=== PATIENT | male | born 1965 | race Caucasian/White ===

== ENCOUNTER 2016-11-29 20:00 | Emergency (ER) | payer MEDICARE ==
[~2016-11-29] VITALS: Ht 180.3 cm; Wt 82.1 kg
[~2016-11-29 20:00] MED LIST: AMOXICILLIN500 M2 PO; ANAPROX DS550 MG PO; ANTIDEPRESSANT; ATIVAN1 MG; ATIVAN1 MG PO; AUGMENTIN 875875 MG PO; CELEXA20 MG; CERUMENEX OT; DEBROX 15 ML15 M1 OT; LORAZEPAM1 MG PO; Motrin,Rufen800 MG PO; NORCO 5-325 TA1 EACH PO; PERPHENAZINE4 M1 PO; SERTRALINE HYD100 MG PO; TRAMADOL HCL50 MG PO; TRAZADONE HYDR100 MG; TRIMOX500 MG PO; ZOLOFT100 MG PO
[2016-11-29 20:07] VITALS: BP 116/74
== END 2016-11-29 22:02 | disposition home or self-care (01) ==
LOC: ED 20:00
DX: H61.22 Impacted cerumen, left ear (principal); Z79.899 Other long term (current) drug therapy

== ENCOUNTER 2017-02-20 09:43 | Emergency (ER) | payer MEDICARE ==
[~2017-02-20] VITALS: Wt 86.2 kg
[2017-02-20 09:47] VITALS: BP 130/70
== END 2017-02-20 10:44 | disposition home or self-care (01) ==
LOC: ED 09:43
DX: H61.22 Impacted cerumen, left ear (principal); Z79.899 Other long term (current) drug therapy

== ENCOUNTER 2019-04-26 12:30 | Emergency (ER) | payer MEDICARE, MEDICAID ==
[~2019-04-26] VITALS: Ht 154.9 cm; Wt 94.3 kg
[2019-04-26 12:32] VITALS: BP 129/54
== END 2019-04-26 14:11 | disposition home or self-care (01) ==
LOC: ED 12:30
DX: S93.402A Sprain of unspecified ligament of left ankle, initial encounter (principal); Z79.899 Other long term (current) drug therapy; X50.1XXA Overexertion from prolonged static or awkward postures, initial encounter; Y93.89 Activity, other specified; Y92.89 Other specified places as the place of occurrence of the external cause; Y99.8 Other external cause status

== ENCOUNTER 2019-08-14 17:23 | Emergency (ER) | payer MEDICARE, MEDICAID ==
[~2019-08-14] VITALS: Ht 180.3 cm; Wt 94.3 kg
[2019-08-14 17:25] VITALS: BP 126/89
[2019-08-14] MEDS ORDERED: CILOXAN 5 ML5 ML OT (17:38)
== END 2019-08-14 17:51 | disposition home or self-care (01) ==
LOC: ED 17:23
DX: H61.22 Impacted cerumen, left ear (principal); Z79.899 Other long term (current) drug therapy

== ENCOUNTER 2020-08-01 14:01 | Emergency (ER) | payer MEDICARE, MEDICAID ==
[~2020-08-01] VITALS: Ht 180.3 cm; Wt 95.3 kg
[~2020-08-01 14:01] MED LIST changes: +CILOXAN 5 ML5 ML OT
[2020-08-01 15:53] VITALS: BP 110/78
[2020-08-01] MEDS ORDERED: ZITHROMAX250 MG PO (17:11)
== END 2020-08-01 17:42 | disposition home or self-care (01) ==
LOC: ED 14:01
DX: U07.1 COVID-19 (principal); J18.9 Pneumonia, unspecified organism; Z79.899 Other long term (current) drug therapy

== ENCOUNTER → 2020-12-14 | Outpatient (CLI) | payer MEDICARE, MEDICAID ==
[~2020-12-14] MED LIST changes: +ZITHROMAX250 MG PO
[2020-12-14 10:42] LABS: HEMATOCRIT 49.2 % (42.0-52.0); MEAN CELL VOLUME 86.9 fl (80.0-94.0); MEAN CORPUSCULAR HGB 29.7 pg (27.0-31.0); MEAN CORPUSCULAR HGB CONC 34.1 g/dl (33.0-37.0); MEAN PLATELET VOLUME 9.8 fl (9.6-12.3); RED BLOOD COUNT 5.66 10*6/uL (4.50-5.90); RED CELL DISTRI WIDTH 12.9 % (0-14.5); WHITE BLOOD COUNT 6.2 10*3/uL (4.8-10.8)
[2020-12-14 11:13] LABS: ALBUMIN 3.9 gm/dl (3.1-4.5); ALKALINE PHOSPHATASE 72 U/L (45-117); BUN 18 mg/dl (7-24); CHLORIDE 108 mmol/L (98-107); CHOLESTEROL 222 mg/dL (<200); CREATININE 1.22 mg/dL (0.70-1.30); HDL CHOLESTEROL 55 mg/dl (40-60); LDL CHOLESTEROL 137 mg/dL (9-159); POTASSIUM 4.1 mmol/L (3.5-5.1); SGOT/AST 16 IU/L (3-35); SGPT/ALT 32 U/L (12-78); SODIUM 140 mmol/L (136-145); TOTAL PROTEIN 7.2 gm/dL (6.4-8.2); TRIGLYCERIDES 148 mg/dl (<150); VLDL CHOLESTEROL 30 mg/dL (6-40)
== END | disposition home or self-care (01) ==
LOC: LAB 10:04
PROVIDERS: ATTEND Nurse Practitioner Family
DX: Z12.5 Encounter for screening for malignant neoplasm of prostate (principal); Z13.220 Encounter for screening for lipoid disorders; E78.00 Pure hypercholesterolemia, unspecified

== ENCOUNTER 2021-02-28 11:24 | Emergency (ER) | payer OTHER, MEDICAID ==
[~2021-02-28] VITALS: Ht 180.3 cm; Wt 97.1 kg
[2021-02-28 11:29] VITALS: BP 117/73
== END 2021-02-28 13:11 | disposition home or self-care (01) ==
LOC: ED 11:24
DX: H61.23 Impacted cerumen, bilateral (principal); Z79.2 Long term (current) use of antibiotics; Z79.899 Other long term (current) drug therapy

== ENCOUNTER 2021-12-07 20:16 | Emergency (ER) | payer OTHER, MEDICAID ==
[~2021-12-07] VITALS: Ht 180.3 cm; Wt 100.2 kg
[2021-12-07 21:02] VITALS: BP 125/76
== END 2021-12-07 22:01 | disposition home or self-care (01) ==
LOC: ED 20:16
DX: H61.22 Impacted cerumen, left ear (principal); Z79.899 Other long term (current) drug therapy

== ENCOUNTER 2022-03-11 15:58 | Emergency (ER) | payer OTHER, MEDICAID | END 2022-03-11 17:17 | disposition left against medical advice (07) | LOC: ED 15:58 | DX: Z53.21 Procedure and treatment not carried out due to patient leaving prior to being seen by health care provider (principal) ==

== ENCOUNTER 2022-08-28 10:10 | Emergency (ER) | payer OTHER, MEDICAID ==
[~2022-08-28] VITALS: Ht 180.3 cm; Wt 99.3 kg
[2022-08-28 10:15] VITALS: BP 112/74
== END 2022-08-28 10:25 | disposition left against medical advice (07) ==
LOC: ED 10:10
DX: Z53.21 Procedure and treatment not carried out due to patient leaving prior to being seen by health care provider (principal)

== ENCOUNTER 2022-11-20 09:59 | Emergency (ER) | payer OTHER, MEDICAID | END 2022-11-20 15:49 | disposition left against medical advice (07) | LOC: ED 09:59 | DX: R05.9 Cough, unspecified (principal); R09.81 Nasal congestion; Z53.21 Procedure and treatment not carried out due to patient leaving prior to being seen by health care provider ==

== ENCOUNTER 2023-02-15 10:12 | Emergency (ER) | payer OTHER, MEDICAID ==
[~2023-02-15] VITALS: Ht 180.3 cm; Wt 102.1 kg
[2023-02-15 10:18] VITALS: BP 122/82
== END 2023-02-15 13:34 | disposition home or self-care (01) ==
LOC: ED 10:12
DX: H61.23 Impacted cerumen, bilateral (principal); Z98.890 Other specified postprocedural states; F32.A Depression, unspecified; F41.9 Anxiety disorder, unspecified

== ENCOUNTER 2024-03-27 22:04 | Emergency (ER) | payer OTHER, MEDICAID ==
[~2024-03-27] VITALS: Ht 180.3 cm; Wt 95.7 kg
[2024-03-27 22:21] VITALS: BP 107/89
[2024-03-27] MEDS ORDERED: DOCUSATE SODIUM 100 MG/10 ML UDC OT ONE (22:50)
== END 2024-03-28 00:30 | disposition home or self-care (01) ==
LOC: ED 22:04
DX: H61.22 Impacted cerumen, left ear (principal); Z79.2 Long term (current) use of antibiotics; Z79.899 Other long term (current) drug therapy

== ENCOUNTER 2025-05-24 10:38 | Emergency (ER) | payer OTHER, MEDICAID ==
[~2025-05-24] VITALS: Wt 99.8 kg
[2025-05-24 10:49] VITALS: BP 125/80
[2025-05-24] MEDS ORDERED: DOCUSATE SODIUM 100 MG/10 ML UDC PO ONE (11:00)
[2025-05-24] MEDS ORDERED: DEBROX15 ML OT (11:10)
== END 2025-05-24 11:39 | disposition home or self-care (01) ==
LOC: ED 10:38
DX: H61.23 Impacted cerumen, bilateral (principal); Z79.899 Other long term (current) drug therapy

== ENCOUNTER 2025-06-24 17:18 | Emergency (ER) | payer OTHER, MEDICAID ==
[~2025-06-24] VITALS: Ht 180.3 cm; Wt 99.8 kg
[~2025-06-24 17:18] MED LIST changes: +DEBROX15 ML OT
[2025-06-24 18:04] VITALS: BP 131/90
[2025-06-24] MEDS ORDERED: CEPHALEXIN500 M1 PO (18:27)
[2025-06-24] MEDS ORDERED: CEPHALEXIN 500 MG CAP PO ONE (18:30)
[2025-06-24] MEDS ORDERED: Tdap Vaccine 0.5 ML SYR (Adult Vaccine) IM ONE (18:30)
== END 2025-06-24 18:29 | disposition home or self-care (01) ==
LOC: ED 17:18
DX: L03.115 Cellulitis of right lower limb (principal); F32.A Depression, unspecified; F41.9 Anxiety disorder, unspecified; G47.00 Insomnia, unspecified; Z48.00 Encounter for change or removal of nonsurgical wound dressing

== ENCOUNTER 2025-06-26 12:07 | Emergency (ER) | payer OTHER, MEDICAID ==
[~2025-06-26] VITALS: Ht 180.3 cm; Wt 99.8 kg
[~2025-06-26 12:07] MED LIST changes: +CEPHALEXIN500 M1 PO
[2025-06-26 12:17] VITALS: BP 114/79
[2025-06-26] MEDS ORDERED: Rabies Vaccine 1 ML VIAL IM ONE (12:25)
[2025-06-26] MEDS ORDERED: Rabies Immune Globulin 150O UNIT/10 ML IM ONE (12:35)
== END 2025-06-26 13:02 | disposition home or self-care (01) ==
LOC: ED 12:07
DX: S81.851A Open bite, right lower leg, initial encounter (principal); Z20.3 Contact with and (suspected) exposure to rabies; F32.A Depression, unspecified; F41.9 Anxiety disorder, unspecified; G47.00 Insomnia, unspecified; W54.0XXA Bitten by dog, initial encounter; Y93.89 Activity, other specified; Y92.89 Other specified places as the place of occurrence of the external cause; Y99.8 Other external cause status

== ENCOUNTER 2025-06-29 12:35 | Emergency (ER) | payer OTHER, MEDICAID ==
[~2025-06-29] VITALS: Ht 180.3 cm; Wt 99.8 kg
[2025-06-29] MEDS ORDERED: Rabies Vaccine 1 ML VIAL IM ONE (12:50)
[2025-06-29 13:01] VITALS: BP 126/88
== END 2025-06-29 13:01 | disposition home or self-care (01) ==
LOC: ED 12:35
DX: Z23 Encounter for immunization (principal); F32.A Depression, unspecified; F41.9 Anxiety disorder, unspecified; G47.00 Insomnia, unspecified

== ENCOUNTER 2025-07-05 10:59 | Emergency (ER) | payer OTHER, MEDICAID ==
[~2025-07-05] VITALS: Ht 180.3 cm; Wt 99.8 kg
[2025-07-05] MEDS ORDERED: Rabies Vaccine 1 ML VIAL IM ONE (11:05)
[2025-07-05 11:21] VITALS: BP 103/81
== END 2025-07-05 11:35 | disposition home or self-care (01) ==
LOC: ED 10:59
DX: S81.851D Open bite, right lower leg, subsequent encounter (principal); Z79.899 Other long term (current) drug therapy; Z23 Encounter for immunization; W54.0XXD Bitten by dog, subsequent encounter

== ENCOUNTER 2025-07-10 12:26 | Emergency (ER) | payer OTHER, MEDICAID ==
[~2025-07-10] VITALS: Ht 180.3 cm; Wt 99.8 kg
[2025-07-10 12:37] VITALS: BP 138/78
[2025-07-10] MEDS ORDERED: Rabies Vaccine 1 ML VIAL IM ONE (12:55)
== END 2025-07-10 13:09 | disposition home or self-care (01) ==
LOC: ED 12:26
DX: Z23 Encounter for immunization (principal); F32.A Depression, unspecified; F41.9 Anxiety disorder, unspecified; G47.00 Insomnia, unspecified

== ENCOUNTER 2025-07-18 12:11 | Emergency (ER) | payer OTHER, MEDICAID ==
[~2025-07-18] VITALS: Ht 180.3 cm; Wt 99.8 kg
[2025-07-18 12:35] VITALS: BP 110/88
== END 2025-07-18 13:02 | disposition left against medical advice (07) ==
LOC: ED 12:11
DX: H92.02 Otalgia, left ear (principal); Z53.21 Procedure and treatment not carried out due to patient leaving prior to being seen by health care provider

== ENCOUNTER 2025-08-20 11:19 | Emergency (ER) | payer OTHER, MEDICAID ==
[~2025-08-20] VITALS: Ht 180.3 cm; Wt 100.2 kg
[2025-08-20 11:24] VITALS: BP 128/85
== END 2025-08-20 11:47 | disposition home or self-care (01) ==
LOC: ED 11:19
DX: H61.22 Impacted cerumen, left ear (principal); F32.A Depression, unspecified; F41.9 Anxiety disorder, unspecified; G47.00 Insomnia, unspecified